=== PATIENT | female | born 1945 | race Caucasian/White ===

== ENCOUNTER → 2018-04-18 | Outpatient (CLI) | payer MEDICARE ==
--- NOTE | 2018-04-18 16:32 | CT ---
EXAMINATION TYPE: CT iac wo/w con DATE OF EXAM: 04/18/2018 COMPARISON: HISTORY: hearing loss, worse on right side CT DLP: 300 mGycm Automated exposure control for dose reduction was used. CONTRAST: CT scan of the IACs is performed without and with IV Contrast, patient injected with 100 mL of Isovue 300. FINDINGS: The external auditory canals are patent bilaterally. Mastoid air cells show no evidence of abnormal opacification bilaterally. The middle ear ossicles are symmetric and unremarkable. There is no evidence of suspicious surrounding soft tissue density to suggest cholesteatoma. The scu brigette is preserved bilaterally. The cochlea and the semicircular canals are symmetric and unremarkable. Vestibular aqueduct and inte rnal carotid canal appear unremarkable. Temporomandibular joints are maintained bilaterally. There are changes of chronic sinusitis. Findings are highly suggestive of an anterior communicating a rtery aneurysm measuring 4 mm. IMPRESSION: 1. 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 MRA [place] recommended. 2. Middle and inner ear demonstrate no abnormality and no diagnostic evidence of cerebellopontine ang le mass.
== END | disposition home or self-care (01) ==
LOC: RADCTMAIN 15:14
PROVIDERS: ATTEND Otolaryngology
DX: H93.19 Tinnitus, unspecified ear (principal); H91.90 Unspecified hearing loss, unspecified ear
CPT/HCPCS: 82565; 84520; 70482; 36415; Q9967

== ENCOUNTER → 2018-05-12 | Outpatient (CLI) | payer MEDICARE ==
--- NOTE | 2018-05-12 09:22 | MR ---
EXAMINATION TYPE: MR angio head wo con DATE OF EXAM: 05/12/2018 COMPARISON: CT 04/18/2018 and 02/09/2016 HISTORY: 73-year-old female Aneurysm TECHNIQUE: High-resolution 3-D time of flight images focusing on the [place] were performed without contrast. Rotational reconstructions generated on a dedicated independent workstation. 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 There is a diminutive/hypoplastic left vertebral artery. 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 Tiny infundibulum at the common origin of the right superior cerebellar artery and a hypoplastic P1 s egment right posterior cerebral artery. No arterial occlusion or additional aneurysmal change seen. Number variation persistent CSP. IMPRESSION: 1. 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 2. 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
== END | disposition home or self-care (01) ==
LOC: RADMRIMAIN 07:00
PROVIDERS: ATTEND Otolaryngology
DX: I67.1 Cerebral aneurysm, nonruptured (principal)
CPT/HCPCS: 70544

== ENCOUNTER → 2022-03-13 | Outpatient (CLI) | payer MEDICARE ==
--- NOTE | 2022-03-13 14:42 | MR ---
EXAMINATION TYPE: MR angio head wo con DATE OF EXAM: 03/13/2022 COMPARISON: Prior MR angiogram dated 05/12/2018 HISTORY: F/U cerebral aneurysm TECHNIQUE: Time of flight images focusing on the [place] were performed without contrast. Th ree-dimensional FINDINGS: The anterior and posterior circulation are intact, right vertebral artery is dominant. Ther e is no evident dissection or embolus, no significant stenosis. 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 Hypotrophic A-1 segment of the left internal carotid artery is present. The prominence of the level of the anterior communicating artery on the left shows no change. IMPRESSION: Exam is stable.
== END | disposition home or self-care (01) ==
LOC: RADMRIMAIN 09:21
PROVIDERS: ATTEND Family Medicine
DX: I67.1 Cerebral aneurysm, nonruptured (principal)
CPT/HCPCS: 70544